=== PATIENT | female | born 1985 | race Caucasian/White ===

== ENCOUNTER 2019-04-03 06:08 | Inpatient (IN) | payer BC ==
[2019-03-30 11:26] VITALS: BMI 30.4
[2019-04-03] MEDS ORDERED: LACTATED RINGERS 1,000 ML IV ONE (06:24)
[2019-04-03] MEDS ORDERED: CITRIC ACID-SODIUM CITRATE 15 ML CUP PO ONE (06:24)
[2019-04-03] MEDS ORDERED: LACTATED RINGERS 1,000 ML IV SCH (06:30)
[2019-04-03 07:33] LABS: Basophils % (A) 0 %; Eosinophils # (A) 0.1 k/uL (0-0.7); Eosinophils % (A) 1 %; HCT 36.3 % (34.0-46.0); HGB 11.9 gm/dL (11.4-16.0); Lymphocytes # (A) 2.2 k/uL (1.0-4.8); Lymphocytes % (A) 25 %; MCH 29.3 pg (25.0-35.0); MCHC 32.8 g/dL (31.0-37.0); MCV 89.3 fL (80.0-100.0); Mean Platelet Volume 7.4; Monocytes # (A) 0.5 k/uL (0-1.0); Monocytes % (A) 6 %; Neutrophils # (A) 5.8 k/uL (1.3-7.7); Neutrophils % (A) 66 %; Platelet Count 260 k/uL (150-450); RBC 4.07 m/uL (3.80-5.40); RDW 13.3 % (11.5-15.5); WBC 8.8 k/uL (3.8-10.6)
[2019-04-03] MEDS ORDERED: ePHEDrine SULFATE/0.9% NACL/PF 50 MG/5 ML SYRINGE IV ONE (08:09)
[2019-04-03] MEDS ORDERED: diphenhydrAMINE 50 MG/ML 1 ML VIAL ONE (08:09)
[2019-04-03] MEDS ORDERED: OXYTOCIN 10 UNIT/ML 1 ML VIAL ONE (08:09)
[2019-04-03] MEDS ORDERED: MORPHINE SULFATE (PF) 0.3 MG/0.3 ML SYR ONE (08:09)
[2019-04-03] MEDS ORDERED: ONDANSETRON 4 MG/2 ML VIAL ONE (08:09)
[2019-04-03] MEDS ORDERED: KETOROLAC 30 MG/ML 1 ML VIAL ONE (08:09)
[2019-04-03] MEDS ORDERED: HYDROmorphone (PF) 1 MG/ML ONE (08:09)
[2019-04-03] MEDS ORDERED: NALOXONE 0.4 MG/ML 1 ML VIAL IV PRN (09:13)
[2019-04-03] MEDS ORDERED: ZOLPIDEM 5 MG TAB PO PRN (09:13)
[2019-04-03] MEDS ORDERED: diphenhydrAMINE 25 MG CAP PO PRN (09:13)
[2019-04-03] MEDS ORDERED: SIMETHICONE 80 MG CHEWABLE PO PRN (09:13)
[2019-04-03] MEDS ORDERED: ACETAMINOPHEN TAB 325 MG TAB PO PRN (09:13)
[2019-04-03] MEDS ORDERED: HYDROcodone/APAP 7.5-325MG 1 EACH TAB PO PRN (09:13)
[2019-04-03] MEDS ORDERED: ONDANSETRON 4 MG/2 ML VIAL IVP PRN ×2 (09:13→09:34)
[2019-04-03] MEDS ORDERED: LANOLIN CREAM 5 GM TUBE TOPICAL PRN (09:13)
[2019-04-03] MEDS ORDERED: METOCLOPRAMIDE 5 MG/ML 2 ML VIAL IVP PRN (09:13)
[2019-04-03] MEDS ORDERED: diphenhydrAMINE 50 MG CAP PO PRN (09:13)
[2019-04-03] MEDS ORDERED: diphenhydrAMINE 50 MG/ML 1 ML VIAL IVP PRN ×3 (09:13→09:34)
[2019-04-03] MEDS ORDERED: OXYTOCIN 20 UNITS/1000 ML NS 1,000 ML IV SCH (09:15)
--- NOTE | 2019-04-03 09:18 | P.HPOB ---
History of Present Illness H&P Date: 04/03/19 Chief Complaint: 39-0/7 weeks, previous section x2, requesting repeat The patient is a 33-year-old 3 para 2001 admitted at 39-0/7 weeks as established by last menstrual period. And confirmed by 19 week ultrasound. She is admitted for repeat low transverse section having previously undergone 2 sections. Her has been entirely uncomplicated and group B strep status is negative. On labor and delivery, all signs are reassuring. Obstetrical history: 3 para 2001 with 2 previous term sections, the first was relatively emergent followed by an elective repeat. Current statistics are listed in history present illness. EDC of 110 to thousand 20 was established by last menstrual period and confirmed by a 19 week ultrasound. Laboratory workup demonstrates a blood type of A+ with a negative antibody screen. Rubella status is immune. Remainder of the laboratory workup was within normal limits. One hour Glucola was normal and group B strep status is negative. Gynecologic history: Unremarkable with no history of any infections to include STDs. Review of Systems Review of systems is confined to history of present illness. Past Medical History Past Medical History: No Reported History History of Any Multi-Drug Resistant Organisms: None Reported Past Surgical History: Section Past Anesthesia/Blood Transfusion Reactions: No Reported Reaction Past Psychological History: No Psychological Hx Reported Smoking Status: Never smoker Past Alcohol Use History: None Reported Past Drug Use History: None Reported - Past Family History Mother Family Medical History: No Reported History Medications and Allergies Home Medications Medication Instructions Recorded Confirmed Type Pnv No.95/Ferrous Fum/Folic AC 1 each PO DAILY 03/30/19 04/03/19 History [ Multivitamin Tablet] Allergies Allergy/AdvReac Type Severity Reaction Status Date / Time No Known Allergies Allergy Verified 04/03/19 06:23 Exam Vital Signs Temp Pulse Resp BP Pulse Ox 04/03/19 07:28 98.1 F 101 H 15 129/62 98 Intake and Output 04/02/19 04/03/19 04/03/19 22:59 06:59 14:59 Other: Weight 70.76 kg In general, this is a well-developed, well-nourished white female in no acute distress. Her heart has a regular rhythm and rate without murmur. Her lungs are clear to auscultation bilaterally in all silva. Her abdomen is gravid, nondistended, has normal active bowel sounds, is soft, nontender, and without any palpable masses aside from uterine fundus. Her extremities are without any cyanosis, clubbing, or edema and are nontender to palpation bilaterally. Digital cervical examination is deferred. Results Result Diagrams: 04/03/19 07:15 Assessment and Plan (1) Previous section Current Visit: Yes Status: Acute Code(s): Z98.891 - HISTORY OF UTERINE SCAR FROM PREVIOUS SURGERY SNOMED Code(s): 840920661 (2) Term Current Visit: Yes Status: Acute Code(s): Z34.90 - ENCNTR FOR SUPRVSN OF NORMAL , UNSP, UNSP TRIMESTER SNOMED Code(s): 37973164 Plan: The patient is admitted for repeat low transverse section. The risks and, occasions of the procedure been thoroughly discussed and she has agreed to proceed. She has, at this time, declined intraoperative tubal ligation.
--- NOTE | 2019-04-03 09:27 | P.OP ---
Date of Procedure: 04/03/19 Preoperative Diagnosis: #1. 39-0/7 weeks, previous section times 2 Postoperative Diagnosis: Same Procedure(s) Performed: #1. Repeat low transverse section Anesthesia: spinal Surgeon: Julius Miranda Wheel And Axle Inspector #1: Yadi Velez Estimated Blood Loss (ml): 500 IV fluids (ml): 1,400 Urine output (ml): 250 Pathology: none sent Condition: stable Disposition: floor Operative Findings: Intraoperatively, there was a moderate to significant amount of scarring at the level of the fascia and rectus muscles. The bladder was noted to be distal to the site of intended incision was left intact and clear urine was noted throughout. The lower uterine segment was extremely thin at and just below the level of the incision and easily tore with stitching and closure. The uterus, tubes, and ovaries were otherwise normal to inspection. The patient was delivered of a viable 6 lbs. 10 oz. baby boy with Apgars of 9 at 1 minute and 9 at 5 minutes delivered in the occiput anterior position. The placenta was delivered manually, intact, and grossly normal with a grossly normal three- vessel cord. As there was a moderate amount of oozing continuing it 2 separate sites along the uterine closure, FloSeal was applied prior to closure of the fascia. The bleeding appeared to be entirely controlled with FloSeal. Description of Procedure: The patient was prepped and draped in usual fashion after spinal anesthesia was administered by the anesthesiologist. A Pfannenstiel incision was made through pre-existing scar and extended into the abdominal cavity with some difficulty secondary to the level of scarring at the fascia and the rectus muscles. The bladder peritoneum was noted to be distal to the intended site of incision though the lower uterine segment was very thin. A 2 cm incision was made in the transverse plane of the lower uterine segment to enter the uterus at which time clear fluid was noted. The incision was extended in both directions using the b andage scissors. The head was delivered up and through the incision where the nose and mouth were thoroughly suctioned. Remainder of the was delivered onto the field. A loose nuchal cord was reduced upon delivery of the . The cord was doubly clamped, cut, and the passed for re- resuscitative measures with weight and Apgars as noted above. A segment of cord was doubly clamped, cut, and set aside should cord gases become necessary. The placenta was delivered manually and intact as noted above. The uterus was exteriorized with some difficulty and the interior cavity swept of any remaining placental or membranous fragments. The margins of the incision were grasped with Lopez clamps and the incision closed in 2 layers. The first layer was a running locking stitch of 0 chromic catgut followed by a running imbricating stitch of 0 chromic catgut. Several points in the midsection were noted to be extraordinarily thin and actually pulled through creating a window. Following closure 2 [id number] stitches of 0 chromic catgut were utilized to attempt to control the bleeding and to close the small window. There continued to be a small amount of oozing from that site. Pressure was applied and the posterior cul-de-sac suctioned with a guard. In the midsection of the procedure, the patient's anesthesia began to become less effective and she was given IV analgesics as well as some nitrous oxide to control her discomfort. The uterine and ovarian findings were normal as noted above. The uterus was replaced into the abdominal cavity, again with some difficulty, and the gutters swept of any remaining blood, fluid, or clot. The incision was reexamined and some ongoing oozing noted from the area were the window had been noted and from the left angle. Rather than placing more stitches, the decision was made to apply FloSeal which was applied to the entire incision with special care taken to the 2 areas of oozing. After observation for several minutes and with pressure on the FloSeal over the wound, hemostasis appeared to be excellent. The layer of muscles were then loosely reapproximated as was the parietal peritoneum. Any small points of bleeding on the muscles were made hemostatic with the Bovie. The fascia was closed with 2 running stitches of 0 Vicryl proceeding from the lateral margins to the midpoint. The subcutaneous tissues were irrigated, made hemostatic with the Bovie, and not reapproximated as they were very thin. The patient did continue to have some generalized oozing in the subcutaneous tissue as well. The skin was closed with a running subcuticular stitch of 4-0 Vicryl followed by half-inch Steri-Strips placed with Mastisol. Estimated blood loss for the case was approximate 500 mL. There were no complications aside from the level of discomfort the patient experienced from the midportion of the procedure. All sponge, instrument, and needle counts were correct. Both mother and tolerated the procedure well and proceeded to the recovery room in stable condition. Both are now resting comfortably in recovery.
[2019-04-03] MEDS ORDERED: KETOROLAC 30 MG/ML 1 ML VIAL IVP PRN (09:34)
[2019-04-03] MEDS ORDERED: NALBUPHINE 10 MG/ML (1 ML AMP) IV PRN (09:34)
[2019-04-03] MEDS ORDERED: HYDROmorphone 0.5 MG/0.5 ML SYRINGE IVP PRN (09:34)
[2019-04-03] MEDS: LACTATED RINGERS 1,000 ML IV SCH ×2 (09:39→19:29)
[2019-04-03] MEDS: SENNOSIDES-DOCUSATE SODIUM 1 EACH TAB PO SCH (19:29)
[2019-04-03] MEDS: KETOROLAC 30 MG/ML 1 ML VIAL IVP PRN (21:09)
[2019-04-04] MEDS: LACTATED RINGERS 1,000 ML IV SCH (00:29)
[2019-04-04] MEDS: KETOROLAC 30 MG/ML 1 ML VIAL IVP PRN (05:41)
[2019-04-04] MEDS: SENNOSIDES-DOCUSATE SODIUM 1 EACH TAB PO SCH ×2 (08:10→20:39)
[2019-04-04 08:42] LABS: Basophils % (A) 0 %; Eosinophils # (A) 0.1 k/uL (0-0.7); Eosinophils % (A) 1 %; HCT 36.2 % (34.0-46.0); HGB 11.9 gm/dL (11.4-16.0); Lymphocytes % (A) 15 %; MCH 30.3 pg (25.0-35.0); MCHC 32.8 g/dL (31.0-37.0); MCV 92.2 fL (80.0-100.0); Mean Platelet Volume 7.8; Monocytes # (A) 0.5 k/uL (0-1.0); Monocytes % (A) 4 %; Neutrophils # (A) 10.1 k/uL (1.3-7.7); Neutrophils % (A) 79 %; Platelet Count 235 k/uL (150-450); RBC 3.93 m/uL (3.80-5.40); RDW 13.5 % (11.5-15.5); WBC 12.8 k/uL (3.8-10.6)
--- NOTE | 2019-04-04 10:53 | P.PNOBGPC ---
Subjective - Subjective Patient reports: Reports appetite normal, Reports voiding normally, Reports pain well controlled, Reports ambulating normally : doing well, nursing well Objective - Vital Signs Latest vital signs: Vital Signs Temp Pulse Resp BP Pulse Ox 04/04/19 08:00 97.8 F 91 18 99/58 95 04/04/19 06:00 18 04/04/19 04:00 98.5 F 92 18 97/65 04/04/19 01:49 16 04/04/19 00:00 98.3 F 81 18 97/63 97 04/03/19 22:00 18 97 04/03/19 19:51 98.3 F 94 18 99/70 97 04/03/19 18:00 16 98 04/03/19 16:00 98.2 F 95 16 112/75 04/03/19 14:00 15 98 04/03/19 12:34 16 98 04/03/19 11:14 98.1 F 95 15 117/66 99 Intake and Output 04/03/19 04/04/19 04/04/19 22:59 06:59 14:59 Output Total 800 400 Balance -800 -400 Output: Urine 800 400 Uretheral ([place]os) 400 Other: Voiding Method Toilet Toilet # Voids 1 1 - Exam Extremities: Present: normal Abdomen: Present: normal appearance, soft. Absent: distention, tenderness Incision: Present: normal, dry, intact Uterus: Present: normal, firm (The uterine fundus is tonic and appropriately tender just below the umbilicus.) - Labs Labs: Abnormal Lab Results - Last 24 Hours (Table) 04/04/19 Range/Units 07:15 WBC 12.8 H (3.8-10.6) k/uL Neutrophils # 10.1 H (1.3-7.7) k/uL Assessment and Plan (1) Previous section Current Visit: Yes Status: Acute Code(s): Z98.891 - HISTORY OF UTERINE SCAR FROM PREVIOUS SURGERY SNOMED Code(s): 788383462 (2) Term Current Visit: Yes Status: Acute Code(s): Z34.90 - ENCNTR FOR SUPRVSN OF NORMAL , UNSP, UNSP TRIMESTER SNOMED Code(s): 29708198 (3) S/P section Current Visit: Yes Status: Acute Code(s): Z98.891 - HISTORY OF UTERINE SCAR FROM PREVIOUS SURGERY SNOMED Code(s): 992805240 Plan: Continue routine postoperative care. I would anticipate discharge home tomorrow morning pending no complications. The patient has, on multiple occasions, declined circumcision.
[2019-04-04] MEDS: IBUPROFEN 600 MG TAB PO PRN ×2 (11:58→18:10)
[2019-04-04] MEDS: HYDROcodone/APAP 5-325MG 1 EACH TAB PO PRN ×2 (15:13→20:39)
--- NOTE | 2019-04-04 15:30 | P.PN ---
Progress Note - Text Progress Note Date: 04/04/19 POD 1 from c section with spinal duramorph. doing well, pain controlled. able to ambulate, able to void, no pruritis. Strength back to normal.
[2019-04-05] MEDS: IBUPROFEN 600 MG TAB PO PRN (05:56)
[2019-04-05] MEDS: SENNOSIDES-DOCUSATE SODIUM 1 EACH TAB PO SCH (08:01)
[2019-04-05 08:07] VITALS: BP 107/69; PULSE 90; RESP 18; TEMP 98.3
[2019-04-05] MEDS: HYDROcodone/APAP 5-325MG 1 EACH TAB PO PRN (10:03)
--- NOTE | 2019-04-05 10:35 | P.DS ---
Providers Date of admission: 04/03/19 06:08 Expected date of discharge: 04/05/19 Attending physician: Julius Miranda Primary care physician: Stated None - Discharge Diagnosis(es) (1) Previous section Current Visit: Yes Status: Acute (2) Term Current Visit: Yes Status: Acute (3) S/P section Current Visit: Yes Status: Acute Hospital Course: The patient is a 33-year-old 3 para 2001Admitted at 39-0/7 weeks by good dating parameters. She is admitted for repeat low transverse section having had 2 previous sections. Her was uncomplicated and group B strep status is negative. On admission all signs reassuring. She was taken the operating room where she was delivered of a viable 6 lbs. 10 oz. baby boy with Apgars of 9 at 1 minute and 9 at 5 minutes. She did have a moderate amount of scarring in the lower uterine segment was significantly thin requiring some repair of a small window created in this thin segment. Otherwise, her postoperative course was entirely unremarkable with vital signs remained stable and her temperature was afebrile throughout. She was deemed stable for discharge on postoperative day #2 was discharged home to follow-up in the office in 2 weeks for an incision check and 6 weeks routinely. Discharge instructions included calling for any significantly increased bleeding or foul-smelling lochia, significantly increased fever or abdominal pain, perineal complaints, breast complaints, incisional complaints, or anything else that concerned her. She was additionally instructed to have nothing in the vagina for at least 6 weeks time to include intercourse and to abstain from any heavy lifting over the same period of time. She was lastly instructed to do no driving until off of all pain medications or 2 weeks' time, whichever came first. She understood all of her instructions and agrees to follow up as noted above. Discharge medications included a prescription for [place] 5/325 mg, 1-2 by mouth every 6 hours when necessary pain, #20 dispensed with no refills. She additionally was to continue with vitamins as she has opted to breast-feed. She additionally will use [id number] analgesic pain medications. Maternal blood type is A+ and rubella status is immune. Discharge hemoglobin and hematocrit were 11.9 and 36.2 respectively. Procedures: #1. Repeat low transverse section Patient Condition at Discharge: Good Plan - Discharge Summary Discharge Rx Participant: Yes New Discharge Prescriptions: No Action Pnv No.95/Ferrous Fum/Folic AC [ Multivitamin Tablet] 1 each PO DAILY Discharge Medication List Pnv No.95/Ferrous Fum/Folic AC [ Multivitamin Tablet] 1 each PO DAILY 03/30/19 [History] Follow up Appointment(s)/Referral(s): Julius Miranda MD [STAFF PHYSICIAN] - 2 Weeks Patient Instructions/Handouts: (DC) Discharge Disposition: HOME SELF-CARE
== END 2019-04-05 10:40 | disposition home or self-care (01) | DRG 788 ==
LOC: 4FBP 06:08
PROVIDERS: ADMIT Obstetrics & Gynecology; ATTEND Obstetrics & Gynecology
PROC: 10D00Z1 Extraction of Products of Conception, Low, Open Approach (ICD-10-PCS; principal; 2019-04-03 08:23)
DX: O34.211 Maternal care for low transverse scar from previous cesarean delivery (principal); Z37.0 Single live birth; Z3A.39 39 weeks gestation of pregnancy
CPT/HCPCS: 85025; 86850; 86870; 86880; 86900; 86901

== ENCOUNTER 2019-05-04 05:12 | Inpatient (IN) | payer BC ==
[2019-05-04] MEDS ORDERED: ACETAMINOPHEN TAB 500 MG TAB PO STA (05:28)
--- NOTE | 2019-05-04 05:41 | ED ---
Abdominal Pain HPI - General Chief Complaint: Abdominal Pain Stated Complaint: Vomiting, Post op issue Time Seen by Provider: 05/04/19 05:28 Source: patient Mode of arrival: ambulatory Limitations: no limitations - History of Present Illness Initial Comments: Lanny is a 33-year-old female who is 31 days after a delivery. Patient reports that over the past couple days she has noticed some tenderness in the left side of her incision and she did notice some clear but nonpurulent not malodorous discharge from the left side of her incision. Patient reports mild pelvic pain over the past couple days but today the pain was severe, tenderness throughout her abdomen, fever and feeling quite unwell. - Related Data Home Medications Medication Instructions Recorded Confirmed Pnv No.95/Ferrous Fum/Folic AC 1 tab PO DAILY 03/30/19 05/04/19 [ Multivitamin Tablet] Fluticasone Propionate [Cutivate] 1 applic TOPICAL BID PRN 05/04/19 05/04/19 Allergies Allergy/AdvReac Type Severity Reaction Status Date / Time No Known Allergies Allergy Verified 05/04/19 08:11 Review of Systems ROS Statement: Those systems with pertinent positive or pertinent negative responses have been documented in the HPI. ROS Other: All systems not noted in ROS Statement are negative. Past Medical History Past Medical History: No Reported History History of Any Multi-Drug Resistant Organisms: None Reported Past Surgical History: Section Past Anesthesia/Blood Transfusion Reactions: No Reported Reaction Past Psychological History: No Psychological Hx Reported Smoking Status: Never smoker Past Alcohol Use History: None Reported Past Drug Use History: None Reported - Past Family History Mother Family Medical History: No Reported History General Exam - General Exam Comments Initial Comments: Physical Exam GENERAL: Toxic appearing female HENT: Normocephalic, Atraumatic. EYES: PERRL, EOMI PULMONARY: Unlabored respirations. CARDIOVASCULAR: The cardiac, warm and well perfused extremities ABDOMEN: Very well-healing incision, no significant erythema, Generalized tenderness in the abdomen worse in the lower abdomen SKIN: Warm : External genitalia Pelvic exam reveals a copious amount of purulent drainage from the cervix NEUROLOGIC: Patient is alert and oriented x3. Moving all extremities spontaneously MUSCULOSKELETAL: Normal extremities with adequate strength and full range of motion. No lower extremity swelling or edema. No calf tenderness. PSYCHIATRIC: Normal psychiatric evaluation. Limitations: no limitations Course Vital Signs 02/06/1805/04/19 05/04/19 05:20 05:40 05:49 Temperature 101 F H 101.5 F H 101.5 F H Pulse Rate 94 95 106 H Respiratory 18 36 H 38 H Rate Blood Pressure 84/56 119/75 115/82 O2 Sat by Pulse 99 96 96 Oximetry 05/04/19 05/04/19 06:29 08:07 Temperature 103 F H 99.0 F Pulse Rate 115 H 111 H Respiratory 36 H 16 Rate Blood Pressure 115/75 118/65 O2 Sat by Pulse 96 99 Oximetry Medical Decision Making - Medical Decision Making Patient was seen and evaluated upon arrival to the emergency department, patient is noted be febrile tachycardic tachypneic and in significant discomfort in the lower abdomen. Workup was initiated, there is concern for endometritis as she is status post section one month ago. Computed tomography scan reveals only had boggy dilated uterus no signs of appendicitis no other acute pathology identified. Pelvic exam reveals copious purulent discharge from the cervix. Cultures were obtained. Patient was started on gentamicin and clindamycin IV. Patient care was discussed with pharmacist and they were notified that the patient is actively lactating therefore cannot be on the extended dosing. Patient care was discussed with Dr. Lo who agrees with plans for admission for IV antibiotics - Lab Data Result diagrams: 05/04/19 05:30 05/04/19 05:30 Lab Results 05/04/19 05/04/19 05/04/19 Range/Units 05:30 05:30 05:30 WBC 13.6 H (3.8-10.6) k/uL RBC 5.14 (3.80-5.40) m/uL Hgb 14.6 (11.4-16.0) gm/dL Hct 46.0 (34.0-46.0) % MCV 89.4 (80.0-100.0) fL MCH 28.4 (25.0-35.0) pg MCHC 31.8 (31.0-37.0) g/dL RDW 12.9 (11.5-15.5) % Plt Count 300 (150-450) k/uL Neutrophils % 89 % Lymphocytes % 7 % Monocytes % 2 % Eosinophils % 2 % Basophils % 0 % Neutrophils # 12.0 H (1.3-7.7) k/uL Lymphocytes # 1.0 (1.0-4.8) k/uL Monocytes # 0.3 (0-1.0) k/uL Eosinophils # 0.2 (0-0.7) k/uL Basophils # 0.0 (0-0.2) k/uL PT (9.0-12.0) sec INR (<1.2) APTT (22.0-30.0) sec Sodium 139 (137-145) mmol/L Potassium 4.8 (3.5-5.1) mmol/L Chloride 106 (98-107) mmol/L Carbon Dioxide 23 (22-30) mmol/L Anion Gap 10 mmol/L BUN 14 (7-17) mg/dL Creatinine 0.85 (0.52-1.04) mg/dL Est GFR (CKD-EPI)AfAm >90 (>60 ml/min/1.73 sqM) Est GFR (CKD-EPI)NonAf >90 (>60 ml/min/1.73 sqM) Glucose 128 H (74-99) mg/dL Plasma Lactic Acid Tho 2.3 H* (0.7-2.0) mmol/L Calcium 9.3 (8.4-10.2) mg/dL Total Bilirubin 0.4 (0.2-1.3) mg/dL AST 23 (14-36) U/L ALT 18 (4-34) U/L Alkaline Phosphatase 75 (38-126) U/L Total Protein 7.2 (6.3-8.2) g/dL Albumin 4.2 (3.5-5.0) g/dL Urine Color Urine Appearance (Clear) Urine pH (5.0-8.0) Ur Specific [place] (1.001-1.035) Urine Protein (Negative) Urine Glucose (UA) (Negative) Urine Ketones (Negative) Urine Blood (Negative) Urine Nitrite (Negative) Urine Bilirubin (Negative) Urine Urobilinogen (<2.0) mg/dL Ur Leukocyte Esterase (Negative) Urine WBC (0-5) /hpf Ur Squamous Epith Cells (0-4) /hpf Urine Mucus (None) /hpf Influenza Type A RNA (Not Detectd) Influenza Type B (PCR) (Not Detectd) 05/04/19 05/04/19 05/04/19 Range/Units 05:30 07:09 07:10 WBC (3.8-10.6) k/uL RBC (3.80-5.40) m/uL Hgb (11.4-16.0) gm/dL Hct (34.0-46.0) % MCV (80.0-100.0) fL MCH (25.0-35.0) pg MCHC (31.0-37.0) g/dL RDW (11.5-15.5) % Plt Count (150-450) k/uL Neutrophils % % Lymphocytes % % Monocytes % % Eosinophils % % Basophils % % Neutrophils # (1.3-7.7) k/uL Lymphocytes # (1.0-4.8) k/uL Monocytes # (0-1.0) k/uL Eosinophils # (0-0.7) k/uL Basophils # (0-0.2) k/uL PT 10.3 (9.0-12.0) sec INR 1.0 (<1.2) APTT 21.4 L (22.0-30.0) sec Sodium (137-145) mmol/L Potassium (3.5-5.1) mmol/L Chloride (98-107) mmol/L Carbon Dioxide (22-30) mmol/L Anion Gap mmol/L BUN (7-17) mg/dL Creatinine (0.52-1.04) mg/dL Est GFR (CKD-EPI)AfAm (>60 ml/min/1.73 sqM) Est GFR (CKD-EPI)NonAf (>60 ml/min/1.73 sqM) Glucose (74-99) mg/dL Plasma Lactic Acid Tho (0.7-2.0) mmol/L Calcium (8.4-10.2) mg/dL Total Bilirubin (0.2-1.3) mg/dL AST (14-36) U/L ALT (4-34) U/L Alkaline Phosphatase (38-126) U/L Total Protein (6.3-8.2) g/dL Albumin (3.5-5.0) g/dL Urine Color Light Yellow Urine Appearance Clear (Clear) Urine pH 6.0 (5.0-8.0) Ur Specific [place] 1.024 (1.001-1.035) Urine Protein Negative (Negative) Urine Glucose (UA) Negative (Negative) Urine Ketones Negative (Negative) Urine Blood Negative (Negative) Urine Nitrite Negative (Negative) Urine Bilirubin Negative (Negative) Urine Urobilinogen <2.0 (<2.0) mg/dL Ur Leukocyte Esterase Trace H (Negative) Urine WBC 9 H (0-5) /hpf Ur Squamous Epith Cells 1 (0-4) /hpf Urine Mucus Rare H (None) /hpf Influenza Type A RNA Not Detected (Not Detectd) Influenza Type B (PCR) Not Detected (Not Detectd) - EKG Data -: EKG Interpreted by Me EKG Comments: EKG was obtained a septic workup, EKG was obtained at 5:40 AM, rate is 99 rhythm is sinus with short IL, normal axis, normal intervals, IL 110, care is 80, QTC [address] elevations or depressions no evidence of acute ischemia infarction or arrhythmia. Disposition Clinical Impression: Endometritis, S/P section Disposition: ADMITTED IP TO THIS HOSP Condition: Serious Is patient prescribed a controlled substance at d/c from ED?: No Referrals: None,Stated [Primary Care Provider] - 1-2 days
[2019-05-04 05:46] LABS: Basophils % (A) 0 %; Eosinophils # (A) 0.2 k/uL (0-0.7); Eosinophils % (A) 2 %; HGB 14.6 gm/dL (11.4-16.0); Lymphocytes % (A) 7 %; MCH 28.4 pg (25.0-35.0); MCHC 31.8 g/dL (31.0-37.0); MCV 89.4 fL (80.0-100.0); Mean Platelet Volume 6.8; Monocytes # (A) 0.3 k/uL (0-1.0); Monocytes % (A) 2 %; Neutrophils % (A) 89 %; Platelet Count 300 k/uL (150-450); RBC 5.14 m/uL (3.80-5.40); RDW 12.9 % (11.5-15.5); WBC 13.6 k/uL (3.8-10.6)
[2019-05-04] MEDS: SODIUM CHLORIDE 0.9% 500 ML 500 ML IV SCH ×2 (05:47→05:48)
[2019-05-04 05:57] LABS: ALT 18 U/L (4-34); AST 23 U/L (14-36); African American GFR (CKD) >90 (>60 ml/min/1.73 sqM); Albumin 4.2 g/dL (3.5-5.0); Alkaline Phosphatase 75 U/L (38-126); Anion Gap 10 mmol/L; Blood Urea Nitrogen 14 mg/dL (7-17); Calcium 9.3 mg/dL (8.4-10.2); Carbon Dioxide 23 mmol/L (22-30); Chloride 106 mmol/L (98-107); Glucose 128 mg/dL (74-99); Non-African American GFR(CKD) >90 (>60 ml/min/1.73 sqM); Potassium 4.8 mmol/L (3.5-5.1); Sodium 139 mmol/L (137-145); Total Bilirubin 0.4 mg/dL (0.2-1.3); Total Protein 7.2 g/dL (6.3-8.2)
[2019-05-04 06:02] LABS: Prothrombin Time 10.3 sec (9.0-12.0)
[2019-05-04 06:06] LABS: Partial Thromboplastin Time 21.4 sec (22.0-30.0)
[2019-05-04] MEDS ORDERED: MORPHINE SULFATE 4 MG/ML SYRINGE IVP STA (06:30)
--- NOTE | 2019-05-04 06:53 | CT ---
EXAM: CT Abdomen and Pelvis With Intravenous Contrast CLINICAL HISTORY: Suspected incisional abscess. TECHNIQUE: Axial computed tomography images of the abdomen and pelvis with intravenous contrast. CTDI is 8.6 mGy and DLP is 720 mGy-cm. This CT exam was performed using one or more of the following dose reduction techniques: automated exposure control, adjustment of the mA and/or kV according to patient size, and/or use of iterative reconstruction technique. COMPARISON: No relevant prior studies available. FINDINGS: Lung bases: Unremarkable. No mass. No consolidation. ABDOMEN: Liver: Unremarkable. No mass. Gallbladder and bile ducts: Unremarkable. No calcified stones. No ductal dilation. Pancreas: Unremarkable. No mass. No ductal dilation. Spleen: Unremarkable. No splenomegaly. Adrenals: Unremarkable. No mass. Kidneys and ureters: Unremarkable. No solid mass. No hydronephrosis. Stomach and bowel: Unremarkable. No obstruction. No mucosal thickening. PELVIS: Appendix: No findings to suggest acute appendicitis. Bladder: Unremarkable. No mass. Reproductive: Mildly enlarged, edematous uterus, within limits. No adnexal lesions. No gas seen within the endometrial canal. ABDOMEN and PELVIS: Intraperitoneal space: Unremarkable. No free air. No significant fluid collection. Bones/joints: No acute fracture. No dislocation. Soft tissues: No loculated fluid collection or significant infiltrative changes regional to the section incision site. No soft tissue gas. Vasculature: Unremarkable. No abdominal aortic aneurysm. Lymph nodes: Unremarkable. No enlarged lymph nodes. IMPRESSION: No evidence of abscess or significant inflammatory changes regional to the section incision site. Mildly enlarged, edematous uterus is within limits.
[2019-05-04 07:33] LABS: Appearance,Urine Clear (Clear); Bilirubin,Urine Negative (Negative); Blood,Urine Negative (Negative); Color,Urine Light Yellow; Glucose,Urine (UA) Negative (Negative); Ketones,Urine Negative (Negative); Leukocyte Esterase,Urine Trace (Negative); Mucus,Urine Rare /hpf; Nitrite,Urine Negative (Negative); Protein,Urine Negative (Negative); Specific Gravity,Urine 1.024 (1.001-1.035); Squamous Epithelial Cell,Urine 1 /hpf (0-4); Urobilinogen,Urine <2.0 mg/dL (<2.0); WBC,Urine 9 /hpf (0-5)
[2019-05-04] MEDS ORDERED: CLINDAMYCIN 900 MG in DEXTROSE 5% IN WATER 50 ML IVPB STA ×2 (07:36)
[2019-05-04] MEDS ORDERED: IBUPROFEN 400 MG TAB PO PRN (07:48)
[2019-05-04] MEDS ORDERED: MORPHINE SULFATE 4 MG/ML SYRINGE IV PRN (07:48)
[2019-05-04] MEDS ORDERED: NALOXONE 0.4 MG/ML 1 ML VIAL IV PRN (07:48)
[2019-05-04] MEDS ORDERED: ONDANSETRON 4 MG/2 ML VIAL IVP PRN (07:48)
[2019-05-04] MEDS ORDERED: GENTAMICIN PER PHARMACY MISCELLANE PRN (07:49)
[2019-05-04] MEDS ORDERED: GENTAMICIN 90 MG in SODIUM CHLORIDE 0.9% 100 ML IVPB SCH (08:00)
[2019-05-04] MEDS ORDERED: GENTAMICIN 80 MG in SODIUM CHLORIDE 0.9% 100 ML IVPB ONE (08:00)
[2019-05-04] MEDS: SODIUM CHLORIDE 0.9% 1,000 ML IV SCH ×3 (08:05→21:17)
[2019-05-04] MEDS ORDERED: VANCOMYCIN IV PER PHARMACY 1 EACH MISC MISCELLANE PRN (11:14)
[2019-05-04] MEDS: CEFEPIME 2 GM in SODIUM CHLORIDE 0.9% 100 ML IVPB SCH (11:37)
--- NOTE | 2019-05-04 12:33 | P.HPOB ---
History of Present Illness H&P Date: 05/04/19 Chief Complaint: Status post section, presumptive endomyometritis The patient is a 33-year-old 3 para 3 who underwent repeat section delivery of a viable baby approximately 4-5 weeks ago. Her recovery to this point has been entirely uncomplicated until last evening when the patient began to feel unwell. She then became significantly nauseated and had significantly increasing pain prompting her to present to the emergency room at which time she had a fever of approximately 103F. She demonstrated a white count and had exquisite tenderness of the uterine fundus and was noted to have purulent material coming from the cervix. The diagnosis of endomyometritis was made in the patient was admitted for IV antibiotic therapy. Blood cultures were taken. White count was noted to only be around 13. She has not been sexually active since the time of delivery and had no significant complications at the time of delivery. She denies any urinary or GI symptoms until the onset of this episode last evening. She does report that she currently feels significantly better than at presentation having received one dose of gentamicin and one dose of clindamycin. She has no ongoing nausea at this time but does still have fairly significant abdominal pain. Obstetrical history: 3 para 3003 with 3 term deliveries. Current method of contraception is abstinence as she is 4 weeks from her most recent section. Gynecologic history: Unremarkable with no history of any infections to include STDs. Review of Systems Review of systems is confined to history of present illness. Past Medical History Past Medical History: No Reported History Additional Past Medical History / Comment(s): hypoglycemia History of Any Multi-Drug Resistant Organisms: None Reported Past Surgical History: Section Additional Past Surgical History / Comment(s): cs x3, last 04/03/2019 Past Anesthesia/Blood Transfusion Reactions: No Reported Reaction Past Psychological History: No Psychological Hx Reported Smoking Status: Never smoker Past Alcohol Use History: None Reported Past Drug Use History: None Reported - Past Family History Mother Family Medical History: No Reported History Medications and Allergies Home Medications Medication Instructions Recorded Confirmed Type Pnv No.95/Ferrous Fum/Folic AC 1 tab PO DAILY 03/30/19 05/04/19 History [ Multivitamin Tablet] Fluticasone Propionate [Cutivate] 1 applic TOPICAL BID PRN 05/04/19 05/04/19 History Allergies Allergy/AdvReac Type Severity Reaction Status Date / Time No Known Allergies Allergy Verified 05/04/19 08:11 Exam Vital Signs Temp Pulse Pulse Resp BP BP Pulse Ox 05/04/19 11:58 99.2 F 108 H 16 105/61 95 05/04/19 09:30 98.8 F 104 H 16 101/61 96 05/04/19 08:07 99.0 F 111 H 16 118/65 99 05/04/19 06:29 103 F H 115 H 36 H 115/75 96 05/04/19 05:49 101.5 F H 106 H 38 H 115/82 96 05/04/19 05:40 101.5 F H 95 36 H 119/75 96 05/04/19 05:20 101 F H 94 18 84/56 99 Intake and Output 05/03/19 05/04/19 05/04/19 22:59 06:59 14:59 Other: Weight 58.967 kg 61.235 kg In general, this is a well-developed, well-nourished white female in no acute distress. Her heart has a regular rhythm and rate without murmur. Her lungs are clear to auscultation bilaterally in all silva. Her abdomen is nondistended, soft, with fairly significant and exquisite tenderness below the umbilicus and specifically on the uterine fundus which is approximately 3 fingers beneath the umbilicus. The incision is clean, dry, and intact and otherwise does not appear to have any concern for infection. Her extremities are without any cyanosis, clubbing, or significant edema and are nontender to palpation bilaterally. Results Result Diagrams: 05/04/19 05:30 05/04/19 05:30 Abnormal Lab Results - Last 24 Hours (Table) 05/04/19 05/04/19 05/04/19 Range/Units 05:30 05:30 05:30 WBC 13.6 H (3.8-10.6) k/uL Neutrophils # 12.0 H (1.3-7.7) k/uL APTT (22.0-30.0) sec Glucose 128 H (74-99) mg/dL Plasma Lactic Acid Tho 2.3 H* (0.7-2.0) mmol/L Ur Leukocyte Esterase (Negative) Urine WBC (0-5) /hpf Urine Mucus (None) /hpf 05/04/19 05/04/19 Range/Units 05:30 07:09 WBC (3.8-10.6) k/uL Neutrophils # (1.3-7.7) k/uL APTT 21.4 L (22.0-30.0) sec Glucose (74-99) mg/dL Plasma Lactic Acid Tho (0.7-2.0) mmol/L Ur Leukocyte Esterase Trace H (Negative) Urine WBC 9 H (0-5) /hpf Urine Mucus Rare H (None) /hpf Assessment and Plan (1) Endometritis Current Visit: Yes Status: Acute Code(s): N71.9 - INFLAMMATORY DISEASE OF UTERUS, UNSPECIFIED SNOMED Code(s): 47145188 (2) S/P section Current Visit: Yes Status: Acute Code(s): Z98.891 - HISTORY OF UTERINE SCAR FROM PREVIOUS SURGERY SNOMED Code(s): 555472677 Plan: The presentation at more than 4 weeks following the section is extraordinarily unusual. Nonetheless, all of the physical findings support the diagnosis of endomyometritis. Infectious disease has been consulted. The patient will otherwise be allowed a regular diet and to ambulate as needed. I have strongly encouraged her to ambulate in the halls routinely. She is additionally breast-feeding which presents a potential compounding factor regarding monitoring of fever as engorgement can certainly lead to elevated temperatures. Nonetheless, the patient will remain in the hospital for ongoing IV antibiotic therapy until afebrile for at least 24-48 hours with significant clinical improvement. Some of the discharge criteria will depend upon the input of infectious disease.
[2019-05-04] MEDS ORDERED: VANCOMYCIN 1,000 MG in SODIUM CHLORIDE 0.9% 250 ML IVPB SCH (13:00)
[2019-05-04] MEDS: IBUPROFEN 600 MG TAB PO PRN ×2 (14:48→23:20)
[2019-05-04] MEDS ORDERED: GENTAMICIN 60 MG in SODIUM CHLORIDE 0.9% 100 ML IVPB SCH (18:00)
[2019-05-04] MEDS: ACETAMINOPHEN TAB 325 MG TAB PO PRN (18:03)
--- NOTE | 2019-05-04 23:23 | P.CONS ---
History of Present Illness - Reason for Consult Consult date: 05/04/19 Fever Requesting physician: Julius Miranda - Chief Complaint abdominal pain and fever x 1 day - History of Present Illness Patient is a 33-year-old female who is a status post delivery about 4 to 5 weeks ago patient has been doing well post surgery however is presenting to [facility] ER early this morning with a chief complaints of some pain and tenderness to the left lower abdominal area patient describing the pain to be more of a dull aching to sharp intensity about 5-6 out of 10 and no radiation patient apparently did notice some drainage from the left lateral side of the incision but not purulent and not malodorous patient did have some chills and fever with the symptom the patient presented to the hospital on arrival to the ER patient did have a fever of 101 subsequently spiked a fever of 134 height patient also has been tachycardic with heart rate 104 her white count was elevated at 13.6 lactic acid was 2.3 repeat is 1.2 kidney function was normal liver enzymes are all normal urine has been mildly positive influenza serology was negative patient did have a CT of abdominal pelvis completed which shows no abscess or inflammatory changes around the C- section site mildly enlarged edematous uterus is within limit patient did have a pelvic exam done by the ER physician and he noticed purulent discharge from her vaginal area which has been cultured she received a dose of clindamycin and gentamicin in the ER subsequently has been admitted to hospital infectious was consulted for further recommendation about antibiotic therapy. Review of Systems Positive point has been mentioned in HPI rest of the systems are negative Past Medical History Past Medical History: No Reported History Additional Past Medical History / Comment(s): hypoglycemia History of Any Multi-Drug Resistant Organisms: None Reported Past Surgical History: Section Additional Past Surgical History / Comment(s): cs x3, last 04/03/2019 Past Anesthesia/Blood Transfusion Reactions: No Reported Reaction Past Psychological History: No Psychological Hx Reported Smoking Status: Never smoker Past Alcohol Use History: None Reported Past Drug Use History: None Reported - Past Family History Mother Family Medical History: No Reported History Medications and Allergies Home Medications Medication Instructions Recorded Confirmed Type Pnv No.95/Ferrous Fum/Folic AC 1 tab PO DAILY 03/30/19 05/04/19 History [ Multivitamin Tablet] Fluticasone Propionate [Cutivate] 1 applic TOPICAL BID PRN 05/04/19 05/04/19 History Allergies Allergy/AdvReac Type Severity Reaction Status Date / Time No Known Allergies Allergy Verified 05/04/19 08:11 Physical Exam Vitals: Vital Signs Temp Pulse Pulse Resp BP BP Pulse Ox 05/04/19 15:00 98.1 F 101 H 16 96/60 96 05/04/19 11:58 99.2 F 108 H 16 105/61 95 05/04/19 09:30 98.8 F 104 H 16 101/61 96 05/04/19 08:07 99.0 F 111 H 16 118/65 99 05/04/19 06:29 103 F H 115 H 36 H 115/75 96 05/04/19 05:49 101.5 F H 106 H 38 H 115/82 96 05/04/19 05:40 101.5 F H 95 36 H 119/75 96 05/04/19 05:20 101 F H 94 18 84/56 99 Intake and Output 05/04/19 05/04/19 05/04/19 06:59 14:59 22:59 Other: # Voids 1 Weight 58.967 kg 61.235 kg GENERAL DESCRIPTION: Middle-aged female lying in bed, no distress. No tachypnea or accessory muscle of respiration use. HEENT: Shows Pallor , no scleral icterus. Oral mucous membrane is dry. NECK: Trachea central, no thyromegaly. LUNGS: Unlabored breathing. Clear to auscultation anteriorly. No wheeze or crackle. HEART: S1, S2, regular rate and rhythm. ABDOMEN: Soft, lower abdominal incision looks clean mild left lower quadrant tenderness , guarding or rigidity EXTREMITIES: No edema of feet. SKIN: No rash, no masses palpable. NEUROLOGICAL: The patient is awake, alert, oriented x3, mood and affect normal. Results CBC & Chem 7: 05/04/19 05:30 05/04/19 05:30 Labs: Abnormal Lab Results - Last 24 Hours (Table) 05/04/19 05/04/19 05/04/19 Range/Units 05:30 05:30 05:30 WBC 13.6 H (3.8-10.6) k/uL Neutrophils # 12.0 H (1.3-7.7) k/uL APTT (22.0-30.0) sec Glucose 128 H (74-99) mg/dL Plasma Lactic Acid Tho 2.3 H* (0.7-2.0) mmol/L Ur Leukocyte Esterase (Negative) Urine WBC (0-5) /hpf Urine Mucus (None) /hpf 05/04/19 05/04/19 Range/Units 05:30 07:09 WBC (3.8-10.6) k/uL Neutrophils # (1.3-7.7) k/uL APTT 21.4 L (22.0-30.0) sec Glucose (74-99) mg/dL Plasma Lactic Acid Tho (0.7-2.0) mmol/L Ur Leukocyte Esterase Trace H (Negative) Urine WBC 9 H (0-5) /hpf Urine Mucus Rare H (None) /hpf Microbiology - Last 24 Hours (Table) 05/04/19 08:00 Genital Culture - Preliminary Endocervix Assessment and Plan Assessment: -patient presented to the hospital with sepsis in this patient who did have a fever tachycardia elevated white count in this patient who is status post C- section delivery of her baby however the incision site looks clean with no erythema patient did have a purulent drainage from her genital area with a CTA of abdominal pelvis did shows edematous uterus concerning likely for endomyomyetritis and likely need to cover for the enteric gram-negative both aerobes and anaerobes. (1) Endomyometritis Current Visit: Yes Status: Acute Code(s): N71.9 - INFLAMMATORY DISEASE OF UTERUS, UNSPECIFIED SNOMED Code(s): 83297584 (2) Sepsis Current Visit: Yes Status: Acute Code(s): A41.9 - SEPSIS, UNSPECIFIED ORGANISM SNOMED Code(s): 05970904 Plan: 1-discontinue gentamicin 2-start the patient on Unasyn 3 g every 6 hours 3-IV fluids We will follow on clinical condition and cultures to further adjust medication if needed Thank you for this consultation we will follow the patient along with you Time with Patient: Greater than 30
[2019-05-04] MEDS: AMPICILLIN-SULBACTAM 3 GM in SODIUM CHLORIDE 0.9% 100 ML IVPB SCH (23:36)
[2019-05-05] MEDS: CEFEPIME 2 GM in SODIUM CHLORIDE 0.9% 100 ML IVPB SCH (00:14)
[2019-05-05] MEDS: ACETAMINOPHEN TAB 325 MG TAB PO PRN (04:24)
[2019-05-05] MEDS: SODIUM CHLORIDE 0.9% 1,000 ML IV SCH ×3 (05:00→23:55)
[2019-05-05] MEDS: AMPICILLIN-SULBACTAM 3 GM in SODIUM CHLORIDE 0.9% 100 ML IVPB SCH ×4 (05:46→23:53)
[2019-05-05] MEDS: IBUPROFEN 600 MG TAB PO PRN ×3 (08:04→23:54)
[2019-05-05] MEDS ORDERED: GENTAMICIN TROUGH DUE 1 EACH MISC MISCELLANE ONE (09:30)
[2019-05-05 09:54] LABS: African American GFR (CKD) >90 (>60 ml/min/1.73 sqM); Non-African American GFR(CKD) >90 (>60 ml/min/1.73 sqM)
--- NOTE | 2019-05-05 11:11 | P.PN ---
Subjective Progress Note Date: 05/05/19 Principal diagnosis: Endomyometritis status post section The patient reports feeling significantly better today. She has no ongoing nausea and actually feels hungry. She reports her pain is significantly improved and all activities of daily living are normal. She reports that vaginal discharge is also significantly decreased. Objective - Vital Signs Vital signs: Vital Signs Temp 97.6 F 05/05/19 08:00 Pulse 81 05/05/19 08:00 Resp 16 05/05/19 08:00 BP 81/48 05/05/19 08:00 Pulse Ox 98 05/05/19 08:00 Intake & Output 05/04/19 05/05/19 05/05/19 18:59 06:59 18:59 Weight 61.235 kg Other: # Voids 1 1 - Exam In general, this is a well-developed, well-nourished white female in no acute distress. Her heart has a regular rhythm and rate without murmur. Her lungs are clear to auscultation bilaterally in all silva. Her abdomen is nondistended, soft, with minimal abdominal tenderness and only mild tenderness of the uterine fundus which is significantly improved from examination yesterday. The incision is clean, dry, and intact. Her extremities are without any cyanosis, clubbing, or edema and are nontender to palpation bilaterally. - Labs CBC & Chem 7: 05/04/19 05:30 05/05/19 09:28 Labs: Microbiology - Last 24 Hours (Table) 05/04/19 05:30 Blood Culture - Preliminary Blood No Growth after 24 hours 05/04/19 08:00 Genital Culture - Preliminary Endocervix Assessment and Plan (1) Endometritis Current Visit: Yes Status: Acute Code(s): N71.9 - INFLAMMATORY DISEASE OF UTERUS, UNSPECIFIED SNOMED Code(s): 71257612 (2) S/P section Current Visit: Yes Status: Acute Code(s): Z98.891 - HISTORY OF UTERINE SCAR FROM PREVIOUS SURGERY SNOMED Code(s): 014479278 Plan: Continue IV Unasyn as ordered. I would anticipate discharge home tomorrow pending no spikes and fever and continued clinical improvement. She will likely be sent home on a course of oral antibiotics to be determined by infectious disease, most likely doxycycline. I have again encouraged the patient to ambulate in the hallways routinely.
[2019-05-05] MEDS ORDERED: GENTAMICIN PEAK DUE 1 EACH MISC MISCELLANE ONE (11:30)
--- NOTE | 2019-05-05 22:27 | PN ---
PROGRESS NOTE DATE OF SERVICE: 05/05/2019 REASON FOR FOLLOWUP: Endomyometritis. INTERVAL HISTORY: The patient is currently afebrile. The patient has been breathing comfortably. The patient denies having any chest pain, shortness of breath or cough. Abdominal pain has improved. No nausea, no vomiting and no diarrhea. PHYSICAL EXAMINATION: Blood pressure 102/72 with a pulse of 70, temperature 98.1. She is 98% on room air. General description is a middle-aged female lying in bed in no distress. RESPIRATORY SYSTEM: Unlabored breathing. Clear to auscultation anteriorly. HEART: S1, S2. Regular rate and rhythm. ABDOMEN: Soft. No tenderness. LABS: Blood cultures have been negative. No CBC done today. DIAGNOSTIC IMPRESSION AND PLAN: Patient admitted to hospital with abdominal pain and fever in this patient who did have a CT suspicious for endomyometritis and did have purulent drainage on pelvic exam. The patient clinically is responding to Unasyn; that will be continued. Will wait for the culture to finalize. Repeat the CBC tomorrow and continue with supportive care. MMODL / IJN: [id number] /
[2019-05-06] MEDS: SODIUM CHLORIDE 0.9% 1,000 ML IV SCH ×2 (05:51→10:04)
[2019-05-06] MEDS: AMPICILLIN-SULBACTAM 3 GM in SODIUM CHLORIDE 0.9% 100 ML IVPB SCH ×2 (05:52→11:06)
[2019-05-06 07:01] LABS: Basophils % (A) 0 %; Eosinophils # (A) 0.3 k/uL (0-0.7); Eosinophils % (A) 3 %; HCT 40.1 % (34.0-46.0); HGB 12.8 gm/dL (11.4-16.0); Lymphocytes # (A) 2.5 k/uL (1.0-4.8); Lymphocytes % (A) 27 %; MCH 28.7 pg (25.0-35.0); MCHC 31.9 g/dL (31.0-37.0); MCV 90.1 fL (80.0-100.0); Mean Platelet Volume 6.8; Monocytes # (A) 0.3 k/uL (0-1.0); Monocytes % (A) 3 %; Neutrophils % (A) 65 %; Platelet Count 239 k/uL (150-450); RBC 4.45 m/uL (3.80-5.40); RDW 13.5 % (11.5-15.5); WBC 9.2 k/uL (3.8-10.6)
[2019-05-06 07:08] LABS: African American GFR (CKD) >90 (>60 ml/min/1.73 sqM); Anion Gap 8 mmol/L; Blood Urea Nitrogen 8 mg/dL (7-17); Calcium 8.8 mg/dL (8.4-10.2); Carbon Dioxide 23 mmol/L (22-30); Chloride 110 mmol/L (98-107); Glucose 82 mg/dL (74-99); Non-African American GFR(CKD) >90 (>60 ml/min/1.73 sqM); Potassium 4.1 mmol/L (3.5-5.1); Sodium 141 mmol/L (137-145)
[2019-05-06 07:51] VITALS: BP 109/68; PULSE 74; RESP 16; TEMP 98.3
--- NOTE | 2019-05-06 08:59 | P.DS ---
Providers Date of admission: 05/04/19 07:48 Expected date of discharge: 05/06/19 Attending physician: Julius Miranda Consults: 05/04/19 10:33 Consult Physician Stat Consulting Provider: Ene Lira Consult Reason/Comments: infection Do you want consulting provider notified?: Yes Primary care physician: Stated None - Discharge Diagnosis(es) (1) Endometritis Current Visit: Yes Status: Acute (2) S/P section Current Visit: Yes Status: Acute Hospital Course: The patient is a 33-year-old 3 para 3 who is approximately 4-5 week status post third section which was uncomplicated in nature. She presented to the emergency room with acute onset of significant abdominal pain and fever in the emergency room 203F. Examination before out significant abdominal and particularly uterine fundal tenderness with the pelvic examination demonstrating what was referred to as possible or purulent discharge from the cervix. Initial white count was only between 13 and 14,000. Nevertheless, the diagnosis of acute endomyometritis was made and the patient was admitted for IV antibiotics. She is initially given a dose of gentamicin and clindamycin in the emergency room. Infectious disease was consulted and change to the antibiotic to Unasyn 3 g every 8 hours. The patient improved very rapidly over the first 24 hours and, by the morning of hospital day #3, had been afebrile for the entirety of her stay with a normal white count and minimal of to no ongoing pain. She denied any vaginal discharge or any other concerns of any kind. She had been performing all activities of daily living during her entire hospital stay. She was deemed stable for discharge on hospital day #3 to follow up with me as previously scheduled for her routine 6 week visit in the next 1-2 weeks. She was instructed to call for any significantly increased pain, fever, GI concerns, vaginal discharge, or anything else that concerned her. She is to be discharged on antibiotic to be chosen by infectious disease, likely for one further week by mouth. White blood cell count this morning was between 9 and 10, in the normal range. Procedures: #1. IV antibiotics #2. Infectious disease consultation Patient Condition at Discharge: Stable Plan - Discharge Summary New Discharge Prescriptions: No Action Pnv No.95/Ferrous Fum/Folic AC [ Multivitamin Tablet] 1 tab PO DAILY Fluticasone Propionate [Cutivate] 1 applic TOPICAL BID PRN PRN Reason: Itching Discharge Medication List Pnv No.95/Ferrous Fum/Folic AC [ Multivitamin Tablet] 1 tab PO DAILY 03/30/19 [History] Fluticasone Propionate [Cutivate] 1 applic TOPICAL BID PRN 05/04/19 [History] Follow up Appointment(s)/Referral(s): None,Stated [Primary Care Provider] - 1-2 days Julius Miranda MD [STAFF PHYSICIAN] - 2 Weeks Discharge Disposition: HOME SELF-CARE
[2019-05-06 09:17] LABS: C Reactive Protein 138.2 mg/L (<10.0)
--- NOTE | 2019-05-06 11:16 | PN ---
PROGRESS NOTE DATE OF SERVICE: 05/05/2019 REASON FOR FOLLOWUP: Endomyometritis. INTERVAL HISTORY: The patient is currently afebrile. Patient is feeling better. Breathing comfortably. Denies having any chest pain, shortness of breath or cough. No nausea, no vomiting. Abdominal pain has resolved. No diarrhea. No vaginal drainage. PHYSICAL EXAMINATION: Blood pressure is 109/68 with a pulse of 74, temperature 98.3, she is 98% on room air. General description is a middle-aged female, lying in bed in no distress/ RESPIRATORY SYSTEM: Unlabored breathing, clear to auscultation anteriorly. HEART: S1, S2. Regular rate and rhythm. ABDOMEN: Soft, no tenderness. EXTREMITIES: No edema of feet. LABS: Hemoglobin is 12.8, white count of 9.2, BUN of 8, creatinine 0.63. Blood cultures have been negative. Endocervix culture still pending. DIAGNOSTIC IMPRESSION AND PLAN: Patient with endomyometritis. Patient seemed to have shown clinical improvement on IV Unasyn. She will get her noon dose of Unasyn, afterward will send her home on oral Augmentin 875 b.i.d. for 2 weeks. Advised to follow up in the office in 1-2 weeks. Continue supportive care. MMODL / IJN: [id number] /
[2019-05-06 11:56] LABS: Chlamydia trachomatis rRNA Not detected (Not detected); Neisseria gonorrhoeae rRNA Not detected (Not detected)
== END 2019-05-06 12:40 | disposition home or self-care (01) | DRG 776 ==
LOC: EC 05:12 → 6PED 07:48 → 4FBP 09:06
PROVIDERS: ADMIT Obstetrics & Gynecology; ATTEND Obstetrics & Gynecology
DX: O86.04 Sepsis following an obstetrical procedure (principal); O86.12 Endometritis following delivery; Z98.891 History of uterine scar from previous surgery
CPT/HCPCS: 36415; 74177; 80048; 80053; 81001; 82565; 83605; 85025; 85610; 85730; 86140; 87040; 87070; 87491; 87502; 87591; 93005; 96361; 96365; 96374; 96376; 99285